=== PATIENT | female | born 1955 | race Caucasian/White ===

== ENCOUNTER 2022-11-04 17:44 | Emergency (ER) | payer MEDICARE, SELFPAY ==
[2022-11-04] VITALS (11 sets, daily range): BP systolic 167–196; BP diastolic 72–86; PULSE 64–78; RESP 8–21; TEMP 36.4; O2SAT 96–99
--- NOTE | ~2022-11-04 | XR_ITS ---
Clinical Indication: Chest pain PA and lateral views of the chest: Comparison: None Findings: The lungs are clear, without evidence of focal consolidation or pleural effusion. Cardiome diastinal silhouette is within normal limits. Bones and soft tissues are unremarkable. Impression: Normal chest. Reviewed, dictated and finalized at location . Impression: Normal chest.
--- NOTE | ~2022-11-04 | CT_ITS ---
Clinical Indication: Chest pain CT Scan of the Chest with Contrast: Technique: Contiguous sections were acquired throughout the chest after intravenous administration of 100 cc of Omnipaque 350. Dose reduction technique was used on this scan by utilizing automated expos ure control and iterative reconstruction technique. The dose-length product (DLP) was 758.81 mGy-cm. Findings: There is no evidence of any significant mediastinal, hilar or axillary lymphadenopathy. There is no f illing defect in the pulmonary arterial tree to suggest pulmonary embolus. There is no evidence of ao rtic dissection or aneurysm. There is no evidence of pleural or pericardial effusion. The lungs are clear. No pulmonary nodules or infiltrates are noted. Images through the upper abdomen reveal no abnormalities. Impression: No evidence of pulmonary embolus, aortic dissection, or aortic aneurysm. Clear lungs. Reviewed, dictated and finalized at [facility]. Impression: No evidence of pulmonary embolus, aortic dissection, or aortic aneurysm. Clear lungs.
--- NOTE | 2022-11-04 17:44 | ECG_ITS ---
Measurements Intervals [place] Rate: 71 P: 34 SD: 160 QRS: -29 QRSD: 109 T: 9 QT: 389 QTc: 424 Interpretive Statements SINUS RHYTHM LOW QRS VOLTAGE IN PRECORDIAL LEADS PATTERN CONSISTENT WITH PULMONARY DISEASE BORDERLINE ST-T WAVE ABNORMALITY- DIFFUSE LEADS BORDERLINE ECG NO PREVIOUS ECG AVAILABLE FOR COMPARISON Electronically Signed On 11-04-2022 19:13:16 CDT by Jonah Davison D.O.
[2022-11-04 19:05] LABS: Basophils Absolute Auto 0.1 K/mm3 (0.0-0.1); Basophils Percent Auto 1.5 % (0.2-1.2); Eosinophils Absolute Auto 0.2 K/mm3 (0-0.3); Eosinophils Percent Auto 3.6 % (0-4.4); Hematocrit 40.6 % (37.0-47.0); Hemoglobin 13.9 g/dL (12.0-15.0); Immature Granulocyte Absolute 0.02 K/mm3 (0.00-0.031); Immature Granulocyte Percent A 0.4 % (0-0.5); Lymphocytes Absolute Auto 1.83 K/mm3 (0.9-3.2); Lymphocytes Percent Auto 39.2 % (18.3-44.2); Mean Corpuscular HGB Conc 34.2 g/dl (32-36); Mean Corpuscular Hemoglobin 31.7 pg (26-34); Mean Corpuscular Volume 92.5 fl (80-100); Mean Platelet Volume 9.6 fl (7.4-10.4); Monocytes Absolute Auto 0.4 K/mm3 (0.1-0.6); Monocytes Percent Auto 8.6 % (2.6-8.5); Neutrophils Absolute Auto 2.2 K/mm3 (1.3-6.7); Neutrophils Percent Auto 46.7 % (45.5-73.1); Platelet Count Result 263 k/mm3 (150-375); Red Blood Count 4.39 M/mm3 (4.2-5.4); Red Cell Distribution Width 11.9 % (11.5-14.5); White Blood Count 4.7 K/mm3 (4.5-10.0)
--- NOTE | 2022-11-04 19:19 | ED.CHESTPAIN ---
HPI - Chest Pain General Chief Complaint: Chest Pain Stated Complaint: R sided cp Time Seen by Provider: 11/04/22 18:32 Source: patient Mode of arrival: ambulatory Limitations: no limitations History of Present Illness HPI narrative: Patient is a 66 y/o female, with PMH of HTN, HLD, who presents to the ED with c/o R sided CP. Patient reports having intermittent right lateral chest wall pain, radiating around over her right breast to her midsternal chest for the last week and a half. She states pain seems to be aggravated with taking a deep breath, straining to pick something up. She has been performing her normal activities and went to a water aerobics class without issue. She takes Tylenol almost daily for other chronic pains but denies improvement of this pain. She contacted her primary care doctor about this today and was referred to the ED for further evaluation. Patient denies shortness of breath, abdominal pain, nausea, vomiting, recent cough or cold symptoms, fevers. Denies Hx of CAD, PE/DVT. Related Data Home Medications Medication Instructions Recorded Confirmed fluticasone propionate 50 intranasal 09/02/22 09/02/22 mcg/actuation nasal spray,suspension indapamide 2.5 mg tablet 2.5 mg PO DAILY 09/02/22 09/02/22 losartan 100 mg tablet 100 mg PO DAILY 09/02/22 09/02/22 metoprolol succinate 100 mg 100 mg PO DAILY 09/02/22 09/02/22 tablet,extended release 24 hr montelukast 10 mg tablet 10 mg PO DAILY 09/02/22 09/02/22 rosuvastatin 10 mg tablet 10 mg PO DAILY 09/02/22 09/02/22 Allergies Allergy/AdvReac Type Severity Reaction Status Date / Time Latex, Natural Rubber Allergy Intermediate RASH Verified 09/02/22 11:31 adhesive Allergy Unknown RASH Verified 09/02/22 11:31 Review of Systems Review of Systems: CONSTITUTIONAL: Denies fever, chills, or sweats. ENT: Denies rhinorrhea, congestion, sore throat. CARDIOVASCULAR: See HPI. RESPIRATORY: Denies cough or dyspnea. GASTROINTESTINAL: Denies abdominal pain, nausea, vomiting. MUSCULOSKELETAL: See HPI. NEUROLOGIC: Denies headache, numbness, or weakness. All systems reviewed & are unremarkable except as noted in HPI and below PMFSH Past Medical History Medical History Allergic rhinitis, unspecified Essential (primary) hypertension Generalized osteoarthritis Hyperlipidemia, unspecified Morbid (severe) obesity due to excess calories Social History Social History Smoking status: Never smoker Alcohol intake: current Drinks per week: 14 Substance use: never Substance use type: does not use Lack of Transportation: No Lack of Food: Never True Current Housing: I Have Housing Concerned About Future Housing: No Difficulty Paying Gas/Electric Bills: No Difficulty Paying for Meds: No Currently Unemployed: No Education: Master's Degree or Higher Difficulty w/ Childcare or Family Care: No Living arrangements: with family Occupation/Education: retired Gender identity (if verbalized by the patient): Female Sexual Orientation (if Verbalized by the Patient): Straight or Heterosexual Spiritual care concerns: No Exam Narrative: GENERAL: Well appearing, morbidly obese with BMI of 40.3, non-toxic, in no acute distress. HEAD: Normocephalic, atraumatic. NECK: Supple. No adenopathy, no masses. RESPIRATORY: Airway patent, respirations nonlabored. Clear to auscultation bilaterally, no rales, rhonchi, wheezing. No splinting. No focal lung sounds. CARDIOVASCULAR: Regular rate and rhythm without murmurs, rubs, or gallops. Peripheral pulses 2+ and equal bilaterally. ABDOMINAL: Soft, no tenderness throughout abdomen, nondistended, no hepatosplenomegaly. Normoactive BS. MUSCULOSKELETAL: Moves all extremities. Strength/ROM intact without gross deformities. Mild tenderness to palpation along right lateral chest wall. No ant
[2022-11-04 19:23] LABS: INR 0.9; Prothrombin Time 12.2 Seconds (11.1-14.7)
[2022-11-04 19:24] LABS: Partial Thromboplastin Time 26.1 SECONDS (22.3-36.8)
[2022-11-04 19:32] LABS: Potassium 3.5 mmol/L (3.4-5.0)
[2022-11-04 19:43] LABS: NT Pro B Type Natriuretic Pept 136 pg/mL (19.9-100); Troponin I < 0.012 ng/mL (0.000-0.034)
[2022-11-04 19:50] LABS: Alanine Aminotransferase 31 U/L (6-35); Albumin Level 4.8 g/dL (3.5-5.1); Alkaline Phosphatase 73 U/L (38-126); Anion Gap 8 mmol/L (8-16); Aspartate Amino Transferase 30 U/L (14-36); Bilirubin,Total 0.5 mg/dL (0.2-1.3); Blood Urea Nitrogen 16 mg/dL (7-17); Calcium 9.8 mg/dL (8.4-10.2); Carbon Dioxide 31 mmol/L (22-30); Chloride 93 mmol/L (98-107); Estimated CRCL calculation 85 ml/min; Estimated Glomerular Filt Rate > 60; Glucose 115 mg/dL (65-110); Lipase 127 U/L (23-300); Sodium 132 mmol/L (137-145)
[2022-11-04 20:26] LABS: D Dimer 1.78 ug/mL (<0.48)
[2022-11-04] MEDS: SODIUM CHLORIDE 0.9% IV 1,000 ML 999 ML IV CONT (20:31)
[2022-11-04 21:58] LABS: Troponin I < 0.012 ng/mL (0.000-0.034)
== END 2022-11-04 22:12 | disposition home or self-care (01) ==
PROVIDERS: Emergency Provider Physician Assistant; PCP Family Medicine
DX: R07.89 Other chest pain (principal); I10 Essential (primary) hypertension; E78.5 Hyperlipidemia, unspecified; M19.90 Unspecified osteoarthritis, unspecified site; E66.01 Morbid (severe) obesity due to excess calories; Z68.41 Body mass index [BMI] 40.0-44.9, adult; R94.31 Abnormal electrocardiogram [ECG] [EKG]
CPT/HCPCS: 36415; 71046; 71275; 80053; 83690; 83880; 84484; 85025; 85380; 85610; 85730; 93005; 96360; 99284; J7030; Q9967

== ENCOUNTER 2025-01-14 02:07 | Day surgery (SDC) | payer MEDICARE, SELFPAY ==
[2025-01-06 14:25] VITALS: BMI 36.3
[2025-01-14 09:21] VITALS: BP 165/71; PULSE 68; RESP 16; TEMP 36.3; O2SAT 98
[2025-01-14] MEDS: LACTATED RINGERS 1,000 ML 150 ML IV CONT (09:32)
--- NOTE | 2025-01-14 10:42 | WPDHPUPDATE1 ---
History and Physical Update Update Date/Time: 01/14/25 10:42 History and Physical has been reviewed, including an updated exam of the patient. There are NO changes in the patient's condition. Risks, benefits, and alternatives have been discussed and questions answered. Patient agrees to proceed with procedure.
--- NOTE | 2025-01-14 10:55 | P.PNAN_ITS ---
Anes - Initial Pre Proc Eval Procedure: Operation Date: 01/14/25 10:30 Proposed Procedures p Diagnostic Colonoscopy - Doug Palumbo MD Date/Time: 01/14/25 10:55 Surgeon: Doug Palumbo MD Pre Op Diagnosis: chronic idiopathic constipation Pre Op Diagnosis: Chronic idiopathic constipation Patient Data Age: 69 Gender: F Height: 1.57 m Weight: 90.1 kg Last Vital Signs Temp 36.3 C L 01/14/25 09:21 Pulse 68 01/14/25 09:21 Resp 16 01/14/25 09:21 BP 165/71 H 01/14/25 09:21 Pulse Ox 98 01/14/25 09:21 O2 Del Method Room Air 01/14/25 09:21 Allergies Allergy/AdvReac Type Severity Reaction Status Date / Time Latex, Natural Rubber Allergy Intermediate RASH Verified 01/14/25 09:18 cephalexin Allergy Mild Rash Verified 01/14/25 09:18 adhesive Allergy Unknown RASH Verified 01/14/25 09:18 Home Medications ?Medication ?Instructions ?Recorded ?Confirmed ?Type fluticasone propionate 50 1 spray intranasal DAILY PRN nasal 09/02/22 01/14/25 History mcg/actuation nasal congestion spray,suspension metoprolol succinate 100 mg See Rx Instructions .Route 08/01/24 01/14/25 Rx tablet,extended release 24 hr .COMPLEX #90 tabs rosuvastatin 10 mg tablet See Rx Instructions .Route 0 08/01/24 01/14/25 Rx .COMPLEX #90 tabs losartan 100 mg tablet See Rx Instructions .Route 0 08/10/24 01/14/25 Rx .COMPLEX #90 tabs amlodipine 5 mg tablet 5 mg PO DAILY #90 tabs 11/0501/14/25 Rx Patient hx anesthesia problems: none Family hx anesthesia problems: none Results Review: All pre-operative results and documents have been reviewed as part of the pre- operative evaluation. FOR[facility]LY [facility], [facility] Past Medical History Medical History Colon, diverticulosis Loose stools IBS (irritable bowel syndrome) Allergic rhinitis, unspecified Morbid (severe) obesity due to excess calories Generalized osteoarthritis Hyperlipidemia, unspecified Essential (primary) hypertension Social History Social History Smoking status: Never smoker Alcohol intake: current Drinks per week: 14 Substance use: never Substance use type: does not use Do You Feel Safe in your Home?: Yes Lack of Transportation: No Lack of Food: Never True Current Housing: I Have Housing Concerned About Future Housing: No Difficulty Paying Gas/Electric Bills: No Difficulty Paying for Meds: No Currently Unemployed: No Education: Master's Degree or Higher Difficulty w/ Childcare or Family Care: No Living arrangements: with family Occupation/Education: retired Gender identity (if verbalized by the patient): Female Sexual Orientation (if Verbalized by the Patient): Straight or Heterosexual Spiritual care concerns: No Anes - Eval Final PreProcedure Day of Procedure 01/14/25 10:55 Patient weight: morbidly obese Heart: regular rate and rhythm Lungs: clear to auscultation and normal air movement Airway: Mallampati scale class II Neurological: alert and oriented Last oral intake: >/= 8 hours ASA classification: III Emergent: no Anesthetic plan: proceed Anesthesia type and monitoring: general GIVS and standard monitoring Results Review: All pre-operative results and documents have been reviewed as part of the pre-o perative evaluation. Informed Consent: The patient's anesthetic plan and its attendant risks and benefits were discussed with the patient/family/POA. Questions were solicited and answers provided to the satisfaction of the patient/family/POA.
--- NOTE | 2025-01-14 11:10 | S_PTH ---
PATIENT: Clair Leon LOC: [facility] Miguel#:[id number] AGE/SX: 69/F ROOM: RE01/14/[address]: Doug Palumbo MD : [id number] BED: DIS: 01/14/2025 SPEC #: [id number] RECD: 01/14/25 11:48 STATUS: NATHALY REQ #: [id number] IONA: 01/14/25 11:[address]: Doug Palumbo DEPT: [facility] RECD BY: Starla Borden ENTERED: 01/14/25 11:48 SP TYPE: Surgical OTHR DR: Mj Rivas MD Tissues: A - Colon Biopsy Procedures: Hematoxylin and Eosin Stain Gross and Microscopic Level 4
[2025-01-14 11:13] VITALS: BP 119/76; PULSE 59; RESP 17; O2SAT 98
[2025-01-14 11:23] VITALS: BP 127/69; PULSE 60; RESP 17; O2SAT 100
[2025-01-14 11:33] VITALS: BP 167/87; PULSE 60; RESP 18; O2SAT 99
== END 2025-01-14 11:43 | disposition home or self-care (01) ==
PROVIDERS: PCP Family Medicine; Referring Provider Obstetrics & Gynecology; Visit Provider Internal Medicine Gastroenterology
PROC: 0DJD8ZZ Inspection of Lower Intestinal Tract, Via Natural or Artificial Opening Endoscopic (ICD-10-PCS; CPT 45378; principal; 2025-01-14 10:30)
DX: K52.831 Collagenous colitis (principal); R19.5 Other fecal abnormalities; K57.30 Diverticulosis of large intestine without perforation or abscess without bleeding; K64.4 Residual hemorrhoidal skin tags; E66.01 Morbid (severe) obesity due to excess calories; Z68.36 Body mass index [BMI] 36.0-36.9, adult
CPT/HCPCS: 45380; 88305; J2003; J2704; J7120